=== PATIENT | male | born 1995 | race Caucasian/White ===

== ENCOUNTER 2018-07-12 13:48 | Emergency (ER) | payer BC ==
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
[2018-07-12] MEDS ORDERED: DIPHTH/TETANUS/ACEL. PERTUSSIS IM ONLY ONE (14:25)
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
[2018-07-12 14:56] VITALS: BP 141/77
== END 2018-07-12 15:09 | disposition home or self-care (01) ==
LOC: ER 13:58
DX: S06.0X9A Concussion with loss of consciousness of unspecified duration, initial encounter (principal); V28.0XXA Motorcycle driver injured in noncollision transport accident in nontraffic accident, initial encounter
CPT/HCPCS: 70450; 72100; 72170; 90471; 90715; 99284